=== PATIENT | female | born 1985 | race Hispanic/Latino ===

== ENCOUNTER 2017-07-15 18:36 | Emergency (ER) | payer BC ==
[2017-07-15 18:44] VITALS: BP 123/77; PULSE 81; RESP 16; TEMP 98.4; O2SAT 99
--- NOTE | 2017-07-15 19:06 | ED PDOC ---
Lower Extremity Pain/Injury Time Seen by Provider: 07/15/17 18:41 Chief Complaint (Nursing): Lower Extremity Problem/Injury Chief Complaint (Provider): Left calf pain History Per: Patient History/Exam Limitations: no limitations Onset/Duration Of Symptoms: Hrs (x 1) Current Symptoms Are (Timing): Still Present Pain Scale Rating Of: 8 Additional Complaint(s): Alecia is a 31 y/o female presenting to the ED for left calf pain, with sudden onset 1 hour ago. States she was rushing to cross the street and while walking felt a pop in her left calf. Immediately after, patient developed constant left calf pain and has been unable to walk. Denies prior injuries or trauma to the left lower extremity. Her only daily medication is an oral contraceptive. Patient did take 2.5 mg of Valium several hours ago while on a plane. Has not taken any medication for pain relief since injury. Pain is rated between 8-10. PMD: Dr. Guevara Past Medical History Reviewed: Historical Data, Nursing Documentation, Vital Signs Vital Signs: Last Vital Signs Temp 98.4 F 07/15/17 18:41 Pulse 81 07/15/17 18:41 Resp 16 07/15/17 18:41 BP 123/77 07/15/17 18:41 Pulse Ox 99 07/15/17 18:41 - Medical History PMH: Anxiety - Surgical History Surgical History: No Surg Hx - Family History Family History: States: Unknown Family Hx - Social History Current smoker - smoking cessation education provided: No Alcohol: None Drugs: Denies - Home Medications Home Medications: Ambulatory Orders Medication Instructions Recorded oxyCODONE/Acetaminophen [Percocet 1 ea PO Q6H PRN #15 tab 07/15/17 5/325 mg Tab] - Allergies Allergies/Adverse Reactions: Allergies Allergy/AdvReac Type Severity Reaction Status Date / Time cefaclor [From [facility]] Allergy RASH Verified 07/15/17 18:41 Review of Systems ROS Statement: Except As Marked, All Systems Reviewed And Found Negative Musculoskeletal: Positive for: Leg Pain (Left calf) Physical Exam - Reviewed Nursing Documentation Reviewed: Yes Vital Signs Reviewed: Yes - Physical Exam Appears: Positive for: Non-toxic, No Acute Distress Head Exam: Positive for: ATRAUMATIC, NORMAL INSPECTION, NORMOCEPHALIC Skin: Positive for: Normal Color, Warm, Dry Eye Exam: Positive for: Normal appearance Neck: Positive for: Normal Cardiovascular/Chest: Positive for: Regular Rate, Rhythm. Negative for: Murmur Respiratory: Negative for: Respiratory Distress Extremity: Positive for: Normal ROM, Calf Tenderness (Left) Neurologic/Psych: Positive for: Alert, Oriented. Negative for: Motor/Sensory Deficits - ECG O2 Sat by Pulse Oximetry: 99 (RA) Pulse Ox Interpretation: Normal Medical Decision Making Medical Decision Making: Time: 19:01 Initial Plan: --Given Motrin 600 mg PO --US Duplex Lower Extremity Vein Left to r/o DVT TIME: 20:50 US DUPLEX LEFT LOWER EXTREMITY: FINDINGS: DEEP VEINS: Unremarkable. No DVT in the common femoral, deep femoral, femoral, popliteal, and imaged calf veins. The veins are compressible with normal color flow and augmentation. SUPERFICIAL VEINS: Unremarkable. The imaged portion of the greater saphenous vein is patent by color flow ultrasound. SOFT TISSUES: There is a 3 by 1.6 x 0.8 cm fluid collection in the proximal medial calf just below the popliteal fossa which may represent a Weller's cyst. IMPRESSION: No evidence of left lower extremity DVT. 3 x 1.6 x 0.8 cm fluid collection in the proximal medial calf, possibly a Weller' s cyst. TIME: 21:20 Upon provider reevaluation patient is medically stable, and requires no further treatment in the ED at this time. Imaging results discussed in detail with patient. Counseling was provided and all questions were answered regarding diagnosis and need for follow up with PMD. There is agreement to discharge plan. Return if symptoms persist or worsen. Scribe Attestation: Documented by Linnea Mccarty, acting as a scribe for Mable Blood PA-C Provider Scribe Attestation: All medical record entries made by the Scribe were at my direction and personally dictated by me. I have reviewed the chart and agree that the record accurately reflects my personal performance of the history, physical exam, medical decision making, and the department course for this patient. I have also personally directed, reviewed, and agree with the discharge instructions and disposition. Disposition - Clinical Impression Clinical Impression: Ruptured Bakers cyst - Disposition Referrals: Ashutosh Vance MD [Staff Provider] - Disposition: Routine/Home Disposition Time: 21:17 Condition: STABLE Prescriptions: oxyCODONE/Acetaminophen [Percocet 5/325 mg Tab] 1 ea PO Q6H PRN #15 tab PRN Reason: Pain, Severe (8-10) Instructions: Weller's Cyst (ED) Forms: [facility] [facility] (Azeri)
[2017-07-15] MEDS: Oxycodone/Acetaminophen 5/325 mg Tab PO STA (21:34)
[2017-07-15] MEDS ORDERED: Oxycodone/Acetaminophen 5/325 mg Tab ONE (21:34)
--- NOTE | 2017-07-16 08:48 | US ---
HISTORY: Left calf pain, taking OCP, recent flight . PRIORS: None. FINDINGS: 2-D, color and duplex Doppler analysis of the lower extremity venous circulation using routine protocol from the femoral veins through the popliteal veins. Venous compressibility: Normal. Flow and augmentation patterns: Normal. Visualized veins upper third of calf: Normal. Weller cyst: None. There is a small amount of fluid seen in the proximal left calf, possibly atypical location for a popliteal cyst. This measures approximately 0.8 x 1.6 x 3.0 cm. IMPRESSION: No sonographic or Doppler evidence for DVT in left lower extremity. Possible small atypical popliteal cyst in proximal left calf. Preliminary interpretation of this examination was reported by [facility] at 8:50 p.m. on 07/15/2017. There is concurrence of this report with the preliminary interpretation.
== END 2017-07-15 21:38 | disposition home or self-care (01) ==
LOC: H.ER 18:36
DX: M66.0 Rupture of popliteal cyst (principal)